=== PATIENT | male | born 1980 | race Two or more races ===

== ENCOUNTER 2024-03-11 02:11 | Emergency (ER) | payer OTHER ==
[~2024-03-11] VITALS: Ht 165.1 cm; Wt 75.7 kg
[2024-03-11] MEDS ORDERED: CEFTRIAXONE SODIUM 2,000 MG VIAL IM STA (04:15)
[2024-03-11] MEDS ORDERED: ACETAMINOPHEN 500 MG GEL..CAP PO STA (04:19)
[2024-03-11] MEDS ORDERED: LIDOCAINE HCL 1% 10ML VIAL ONE (04:19)
[2024-03-11] MEDS ORDERED: CEFTRIAXONE SODIUM 1,000 MG VIAL ONE (04:19)
[2024-03-11] MEDS ORDERED: ACETAMINOPHEN 500 MG GEL..CAP PO ONE (04:23)
== END 2024-03-11 04:33 | disposition home or self-care (01) ==
LOC: ER 02:13
DX: J03.80 Acute tonsillitis due to other specified organisms (principal)